=== PATIENT | female | born 1975 | race Two or more races ===

== ENCOUNTER 2019-02-18 18:41 | Emergency (ER) | payer SELFPAY ==
[2019-02-18] MEDS ORDERED: KETOROLAC TROMETHAMINE INJ/PF 30 MG/1 ML SDV IV ONE ×2 (20:00→20:30)
[2019-02-18] MEDS ORDERED: ONDANSETRON HCL INJ/PF 4 MG/2 ML SDV IV ONE (20:00)
--- NOTE | 2019-02-18 20:02 | ER Document Report ---
ED Medical Screen (RME) - General Mode of Arrival: Wheelchair Information source: Patient - Related Data Home Medications: Metformin. Losartan. Atenolol. Synthroid <FROY BROOKS - Last Filed: 02/18/19 20:01> <OTTO MCKEON IV - Last Filed: 02/18/19 20:46> - General Chief Complaint: Back Pain Stated Complaint: BACK PAIN Time Seen by Provider: 02/18/19 19:56 Notes: Patient is a 43-year-old female presenting to the emergency department with 3- day history of low back pain, dysuria and fevers. Patient denies any nausea, vomiting or diarrhea. Exam: No CVA tenderness. Tenderness to palpation to the lumbar region. I have greeted and performed a rapid initial assessment of this patient. A comprehensive ED assessment and evaluation of the patient, analysis of test results and completion of the medical decision making process will be conducted by additional ED providers. I have specifically instructed the patient or family members with the patient to immediately return to any nursing staff should anything change in the patient's condition or with their chief complaint. This medical record was dictated with voice recognizing software. There may be grammatical, syntax errors that are unintended. (FROY BROOKS) - [facility] Notes: 02/18/19 20:35 This is a 43-year-old female who presents to the emergency department complaining of 3 days of lower back pain, dysuria and fever. Patient denies abdominal pain. Patient has been taking 800 mg of ibuprofen at home for her pain with minimal relief of symptoms. Patient states she has had urinary tract infections in the past. Patient denies recent injury or other cause of traumatic back injury. Back pain is exacerbated by flexion at the waist and does not seem to be relieved by anything including lying still. (OTTO MCKEON IV) - Related Data Allergies/Adverse Reactions: No Known Allergies Allergy (Verified 02/18/19 19:19) Past Medical History - General Information source: Patient - Social History Cigarette use (# per day): No Family history: Reviewed & Not Pertinent <OTTO MCKEON IV - Last Filed: 02/18/19 20:46> Review of Systems - Review of Systems Constitutional: Fever EENT: No symptoms reported Cardiovascular: No symptoms reported Respiratory: No symptoms reported Gastrointestinal: No symptoms reported Genitourinary: Dysuria Female Genitourinary: No symptoms reported Musculoskeletal: Back pain Skin: No symptoms reported Hematologic/Lymphatic: No symptoms reported Neurological/Psychological: No symptoms reported -: Yes All other systems reviewed and negative <OTTO MCKEON IV - Last Filed: 02/18/19 20:46> Physical Exam - Vital signs Vitals: Temp Pulse Resp BP Pulse Ox 97.6 F 83 18 194/104 H 98 02/18/19 18:55 02/18/19 18:55 02/18/19 18:55 02/18/19 18:55 02/18/19 18:55 Course - Vital Signs Vital signs: Temp Pulse Resp BP Pulse Ox 97.6 F 83 18 194/104 H 98 02/18/19 18:55 02/18/19 18:55 02/18/19 18:55 02/18/19 18:55 02/18/19 18:55
[2019-02-18 20:26] LABS: APPEARANCE,URINE CLEAR; BILIRUBIN,URINE NEGATIVE (NEGATIVE); COLOR,URINE COLORLESS; GLUCOSE, URINE NEGATIVE (NEGATIVE); KETONES,URINE NEGATIVE (NEGATIVE); LEUKOCYTE ESTERASE,URINE NEGATIVE (NEGATIVE); NITRITE,URINE NEGATIVE (NEGATIVE); PROTEIN,URINE NEGATIVE (NEGATIVE); URINE SPECIFIC GRAVITY 1.002; UROBILINOGEN,URINE NEGATIVE mg/dL (<2.0)
[2019-02-18 21:25] LABS: ABSOLUTE EOSINOPHILS # (AUTO) 0.1 10^3/uL (0.0-0.6); ABSOLUTE MONOCYTES (AUTO) 0.6 10^3/uL (0.1-1.4); ABSOLUTE NEUT (AUTO) 6.4 10^3/uL (1.7-8.2); BASOPHILS % (AUTO) 0.3 % (0-2); HEMATOCRIT 40.7 % (36.0-47.0); HEMOGLOBIN 13.7 g/dL (12.0-15.5); LYMPHOCYTES % (AUTO) 21.7 % (13-45); MEAN CORPUSCULAR HEMOGLOBIN 28.4 pg (27.0-33.4); MEAN CORPUSCULAR HGB CONC 33.7 g/dL (32.0-36.0); MEAN CORPUSCULAR VOLUME 84 fl (80-97); MONOCYTES % (AUTO) 6.5 % (3-13); PLATELET COUNT 305 10^3/uL (150-450); RED BLOOD COUNT 4.82 10^6/uL (3.72-5.28); RED CELL DISTRIBUTION WIDTH 14.5 % (11.5-14.0); SEGMENTED NEUTROPHILS % (AUTO) 70.5 % (42-78); TOTAL CELLS COUNTED % (AUTO) 100 %; WHITE BLOOD COUNT 9.1 10^3/uL (4.0-10.5)
[2019-02-18 21:40] LABS: ALBUMIN 4.4 g/dL (3.5-5.0); ALKALINE PHOSPHATASE 91 U/L (38-126); ANION GAP 11 (5-19); ASPARTATE AMINO TRANSFERASE 23 U/L (14-36); BILIRUBIN,DIRECT 0.1 mg/dL (0.0-0.4); BILIRUBIN,TOTAL 0.3 mg/dL (0.2-1.3); BLOOD UREA NITROGEN 12 mg/dL (7-20); CALCIUM 9.9 mg/dL (8.4-10.2); CARBON DIOXIDE 26 mmol/L (22-30); CHLORIDE 106 mmol/L (98-107); GLUCOSE 88 mg/dL (75-110); POTASSIUM 4.3 mmol/L (3.6-5.0); TOTAL PROTEIN 7.6 g/dL (6.3-8.2)
--- NOTE | 2019-02-18 22:48 | RADIOLOGY REPORT (SQ) ---
EXAM DESCRIPTION: CT abdomen pelvis with contrast CLINICAL HISTORY: 43 years Female, fever, back pain, nausea COMPARISON: None. TECHNIQUE: Axial images of the abdomen and pelvis were performed utilizing intravenous contrast, with sagittal and coronal reformatted images. This exam was performed according to our departmental dose-optimization program which includes use of Automated Exposure Control, adjustment of the mA and/or kV according to patient size and/or use of iterative reconstruction technique. FINDINGS: There are atherosclerotic changes involving the distal abdominal aorta and iliac arteries, but there is no aneurysm. No evidence of appendicitis. No evidence of bowel obstruction. There is no significant radiographic abnormality of the liver, spleen, pancreas, adrenal glands or kidneys. There is an IUD in the uterus. No mass or adenopathy. No free air or free fluid. IMPRESSION: No acute finding. Other findings as described.
[2019-02-18] MEDS ORDERED: LEVOFLOXACIN 750 MG TABLET PO ONE (23:38)
[2019-02-18] MEDS ORDERED: PHENAZOPYRIDINE HCL 200 MG TABLET PO ONE (23:39)
--- NOTE | 2019-02-18 23:42 | ER Document Report ---
ED General - General Chief Complaint: Back Pain Stated Complaint: BACK PAIN Time Seen by Provider: 02/18/19 19:56 Primary Care Provider: VALERIE AGUIAR MD [Primary Care Provider] - Follow up as needed Mode of Arrival: Wheelchair - [facility] Notes: 43-year-old female presents complaining of dysuria, bilateral lower back pain, and fever x3 days. Patient states she is urinating frequently and in small amounts. Patient denies abdominal pain. Patient denies vaginal bleeding. P atient denies chest pain, shortness of breath. Patient states movement makes her symptoms worsen and lying still helps somewhat. Patient has been taking 800 mg Motrin at home with little relief of symptoms. - Related Data Allergies/Adverse Reactions: No Known Allergies Allergy (Verified 02/18/19 19:19) Home Medications: Metformin. Losartan. Atenolol. Synthroid Past Medical History - General Information source: Patient - Social History Smoking Status: Never Smoker Cigarette use (# per day): No Family History: Reviewed & Not Pertinent Patient has suicidal ideation: No Patient has homicidal ideation: No Review of Systems - Review of Systems Constitutional: Fever EENT: No symptoms reported Cardiovascular: No symptoms reported Respiratory: No symptoms reported Gastrointestinal: No symptoms reported Genitourinary: Dysuria, Frequency Female Genitourinary: No symptoms reported Musculoskeletal: Back pain Skin: No symptoms reported Hematologic/Lymphatic: No symptoms reported Neurological/Psychological: No symptoms reported -: Yes All other systems reviewed and negative Physical Exam - Vital signs Vitals: Temp Pulse Resp BP Pulse Ox 97.6 F 83 18 194/104 H 98 02/18/19 18:55 02/18/19 18:55 02/18/19 18:55 02/18/19 18:55 02/18/19 18:55 - Notes Notes: PHYSICAL EXAMINATION: GENERAL: Well-appearing, well-nourished and in no acute distress. HEAD: Atraumatic, normocephalic. EYES: Pupils equal round and reactive to light, extraocular movements intact, sclera anicteric, conjunctiva are normal. ENT: nares patent, oropharynx clear without exudates. Moist mucous membranes. NECK: Normal range of motion, supple without lymphadenopathy LUNGS: Breath sounds clear to auscultation bilaterally and equal. No wheezes rales or rhonchi. HEART: Regular rate and rhythm without murmurs ABDOMEN: Soft, nontender, normoactive bowel sounds. No guarding, no rebound. No masses appreciated. Positive CVA tenderness to light percussion bilaterally EXTREMITIES: Normal range of motion, no pitting or edema. No cyanosis. NEUROLOGICAL: No focal neurological deficits. Moves all extremities spontaneously and on command. PSYCH: Normal mood, normal affect. SKIN: Warm, Dry, normal turgor, no rashes or lesions noted. Course - Re-evaluation Re-evalutation: 02/18/19 23:43 Patient states she has had some relief after IV Toradol. Results of the ED medical screening exam discussed with patient and patient's family member. All questions are answered. Patient's symptoms are most consistent with a urinary tract infection. This MD will put the patient on Levaquin and Pyridium. Emergency signs and symptoms, reasons to return to the ED discussed with patient and patient's family member they expressed understanding of reasons to return to the ED. - Vital Signs Vital signs: Temp Pulse Resp BP Pulse Ox 97.6 F 83 18 164/83 H 98 02/18/19 18:55 02/18/19 18:55 02/18/19 18:55 02/18/19 21:33 02/18/19 18:55 02/18/19 23:44 Vital signs reviewed by this MD. - Laboratory Result Diagrams: 02/18/19 21:15 02/18/19 21:15 Laboratory results interpreted by me: 02/18/19 21:15 RDW 14.5 H 02/18/19 23:44 Laboratory results reviewed by this MD. - Diagnostic Test Radiology reviewed: Reports reviewed Discharge - Discharge Clinical Impression: Low back pain, Dysuria, Urinary frequency Condition: Good Disposition: HOME, SELF-CARE Instructions: Urinary Tract Infection ([facility]) Additional Instructions: Return to the Emergency Department without delay if any worse. HOME CARE INSTRUCTIONS & INFORMATION: Thank you for choosing us for your medical needs. We hope you're satisfied with the care you received. After you leave, you must properly care for your problem and, at the same time, observe its progress. Any condition can change. Some illnesses can change rapidly over hours or days. If your condition worsens, return to the Emergency Department or see your physician promptly. ABOUT YOUR X-RAYS AND EKG'S: If you had an EKG or X-rays taken, they have been read by the Emergency Physician. The X-rays and EKG's will also be read by a Radiologist or Dictating Transcribing Machine Servicer within 24 hours. If discrepancies are noted, you will be notified by telephone. Please be certain the ED has a correct telephone number & address where you can be reached. Also, realize that some fractures or abnormalities do not show up on initial X-rays. If your symptoms continue, see your physician. ABOUT YOUR LABORATORY TEST: If you had laboratory tests, the results have been reviewed by the Emergency Physician. Some test results (for example cultures) may not be available for several days. You will be contacted if any test result shows you need additional treatment. Please be certain the ED has a correct telephone number and address where you can be reached. ABOUT YOUR MEDICATIONS: You will receive instructions on how to take your medicine on the prescription label you receive. Additional information may be provided by the Pharmacy. If you have questions afterwards, call the ED for clarification or further instructions. Some prescribed medications may cause drowsiness. Do not perform tasks such as driving a car or operating machinery without consulting your Pharmacist. If you feel you need a refill of pain medication, your condition will need re-evaluation. Please do not call for a refill of any medication. ABOUT YOUR SIGNATURE: Signature of this document acknowledges to followin. Understanding that you received emergency treatment and that you may be released before al medical problems are known or treated. Please be certain the ED has a correct phone number & address where you can be reached. 2. Acknowledgement that you will arrange for follow-up care as recommended. 3. Authorization for the Emergency Physician to provide information to your follow-up Physician in order to maximize your care. AT ANY TIME, IF YOUR SYMPTOMS CHANGE SIGNIFICANTLY OR WORSEN OR YOU DEVELOP NEW SYMPTOMS, RETURN TO THE EMERGENCY DEPARTMENT IMMEDIATELY FOR RE-EVALUATION. OUR GOAL IS TO PROVIDE EXCELLENT MEDICAL CARE! WE HOPE THAT WE HAVE MET YOUR EXPECTATIONS DURING YOUR EMERGENCY DEPARTMENT VISIT AND THAT YOU FEEL YOU HAVE RECEIVED EXCELLENT CARE! Prescriptions: Levofloxacin [Levaquin 750 mg Tablet] 750 mg PO DAILY 4 Days #4 tablet Phenazopyridine HCl [Pyridium 200 mg Tablet] 200 mg PO TID 2 Days #6 tablet Referrals: VALERIE AGUIAR MD [Primary Care Provider] - Follow up as needed
[2019-02-19 00:08] VITALS: BP 159/82
== END 2019-02-19 00:08 | disposition home or self-care (01) ==
LOC: ER 18:41
DX: M54.5 Low back pain (principal); R30.0 Dysuria; R35.0 Frequency of micturition; R50.9 Fever, unspecified
CPT/HCPCS: 99284; 96374; 96375; 36415; 83690; 84703; 85025; 80053; 81001; 74177; J1885; J3490; J2405